=== PATIENT | female | born 1995 | race Caucasian/White ===

== ENCOUNTER 2016-10-08 19:52 | Inpatient (IN) | payer OTHER ==
[2016-10-08 21:11] LABS: APPEARANCE,URINE SLIGHTLY-CLOUDY; BILIRUBIN,URINE NEGATIVE (NEGATIVE); GLUCOSE, URINE NEGATIVE (NEGATIVE); KETONES,URINE NEGATIVE (NEGATIVE); LEUKOCYTE ESTERASE,URINE LARGE (NEGATIVE); NITRITE,URINE NEGATIVE (NEGATIVE); PROTEIN,URINE NEGATIVE (NEGATIVE)
[2016-10-08 21:41] LABS: URINE BARBITURATES SCREEN NEGATIVE; URINE METHADONE SCREEN NEGATIVE; URINE OPIATES LOW NEGATIVE; URINE PHENCYCLIDINE SCREEN NEGATIVE
--- NOTE | 2016-10-08 22:00 | L&D Flow Sheet ---
LD Flowsheet Datetime Report Generated by CPN: 10/08/2016 22:00 Datetime: 10/08/2016 20:49 I/O Interventions: Up to BR (June Flynn, RN) Datetime: 10/08/2016 20:10 Frequency (min): per patient every 4-5 minutes (June Flynn, RN) Pain Scale: 4 (June Flynn, RN) Pain Presence: Intermittent (June Flynn, RN) Pain Type: Contraction (June Flynn, RN) Pain Location: Abdomen; Back (June Flynn, RN) Pain Goal: 1 (June Flynn, RN) Pain Relief Measures: Comfort Measures (June Flynn, RN) Pain Coping: Breathing Through Contractions (June Flynn, RN) Vaginal Bleeding: None (June Flynn, RN) Level of Consciousness: Fully Conscious (June Flynn, RN) DTR's/Clonus: DTRs 2+; No Clonus (June Flynn, RN) Headache: Generalized (June Flynn, RN) Breath Sounds, Left: Clear and Equal (June Flynn, RN) Breath Sounds, Right: Clear and Equal (June Flynn, RN) Nausea/Vomiting: Present (Annotations: nausea) (June Flynn, RN) RUQ Epigastric Pain: Denies (June Flynn, RN) Datetime: 10/08/2016 20:03 NBP Sys/Rossi/Mean (mmHg): 121 (QS system process) : 66 (QS system process) : 87 (QS system process) Pulse: 88 (QS system process) Datetime: 10/08/2016 20:00 Dilatation (cm): 3.5 (June Flynn RN) Effacement (%): 90 (June Flynn RN) Station: 1 (June Flynn RN) Exam by: Fernanda Flynn RN (June Flynn RN) Vaginal Bleeding: None (June Flynn RN) Cervix, Consistency: Soft (June Flynn RN) Cervix, Position: Posterior (June Flynn RN)
[2016-10-08] MEDS ORDERED: BUPIVACAINE HCL 0.25 % INJ/PF (2.5 MG/1 ML) 30 ML VIAL INFIL ONE (23:57)
[2016-10-08] MEDS ORDERED: EPHEDRINE SULFATE INJ 50 MG/1 ML AMPULE IV PRN (23:57)
[2016-10-08] MEDS ORDERED: BENZOIN/ALOE VERA/STORAX/TOLU TINCTURE 60 ML TP PRN (23:57)
[2016-10-08] MEDS ORDERED: FENTANYL/BUPIVACAINE/NS/PF 100 ML EPI PRN (23:57)
[2016-10-09] MEDS: RINGERS SOLUTION,LACTATED 1,000 ML IV PRN ×2 (00:30→00:41)
[2016-10-09 00:40] LABS: ABSOLUTE LYMPHOCYTES (AUTO) 1.5 10^3/uL (0.5-4.7); ABSOLUTE MONOCYTES (AUTO) 0.4 10^3/uL (0.1-1.4); ABSOLUTE NEUT (AUTO) 8.6 10^3/uL (1.7-8.2); BASOPHILS % (AUTO) 0.3 % (0-2); EOSINOPHILS % (AUTO) 0.3 % (0-6); HEMATOCRIT 24.2 % (36.0-47.0); HGB HCT DIFFERENCE -0.8; LYMPHOCYTES % (AUTO) 13.9 % (13-45); MEAN CORPUSCULAR HEMOGLOBIN 23.5 pg (27.0-33.4); MEAN CORPUSCULAR HGB CONC 32.2 g/dL (32.0-36.0); MEAN CORPUSCULAR VOLUME 73 fl (80-97); MONOCYTES % (AUTO) 3.6 % (3-13); RED BLOOD COUNT 3.31 10^6/uL (3.72-5.28); RED CELL DISTRIBUTION WIDTH 15.5 % (11.5-14.0); SEGMENTED NEUTROPHILS % (AUTO) 81.9 % (42-78); WHITE BLOOD COUNT 10.5 10^3/uL (4.0-10.5)
[2016-10-09 00:53] LABS: HEMOGLOBIN 7.8 g/dL (12.0-15.5)
[2016-10-09] MEDS ORDERED: LIDOCAINE 1% INJ-PF (10 MG/ML) 30 ML SDV ONE (01:06)
[2016-10-09] MEDS ORDERED: MISOPROSTOL 0.2 MG TABLET ONE ×2 (01:06→07:53)
[2016-10-09] MEDS ORDERED: EPHEDRINE SULFATE INJ 50 MG/1 ML AMPULE ONE (01:07)
[2016-10-09] MEDS ORDERED: FENTANYL/BUPIVACAINE/NS/PF 200 MCG/100 ML RTUINJ EPI ONE (01:07)
[2016-10-09] MEDS ORDERED: BUPIVACAINE HCL 0.25 % INJ/PF (2.5 MG/1 ML) 30 ML VIAL ONE (01:07)
[2016-10-09] MEDS ORDERED: OXYTOCIN/NORMAL SALINE 20 UNIT/1,000 ML RTUINJ ONE (01:07)
[2016-10-09] MEDS ORDERED: OXYTOCIN/NORMAL SALINE 1,000 ML IV PRN ×2 (03:47→06:33)
[2016-10-09] MEDS ORDERED: ACETAMINOPHEN WITH CODEINE #3 TABLET PO PRN ×2 (06:33)
[2016-10-09] MEDS ORDERED: PROMETHAZINE HCL INJ 25 MG/1 ML VIAL IV PRN (06:33)
[2016-10-09] MEDS ORDERED: NA PHOS,M-B/NA PHOS,DI-BA (ADULT) 133 ML ENEMA PR PRN (06:33)
[2016-10-09] MEDS ORDERED: BENZOCAINE/MENTHOL AEROSOL SPRAY 56 ML TOP PRN (06:33)
[2016-10-09] MEDS ORDERED: DIBUCAINE 1% OINTMENT 28 GM TP PRN (06:33)
[2016-10-09] MEDS ORDERED: DIPHENHYDRAMINE HCL 25 MG CAPSULE PO PRN (06:33)
[2016-10-09] MEDS ORDERED: MAGNESIUM HYDROXIDE SUSP 30 ML UDCUP PO PRN (06:33)
[2016-10-09] MEDS ORDERED: ZOLPIDEM TARTRATE 5 MG TABLET PO PRN (06:33)
[2016-10-09] MEDS ORDERED: PSEUDOEPHEDRINE HCL 30 MG TABLET PO PRN (06:33)
[2016-10-09] MEDS ORDERED: GLYCERIN/WITCH HAZEL LEAF 1 EACH MED..PAD TP PRN (06:33)
[2016-10-09] MEDS ORDERED: DIPH/PERTUSS(ACELL)/TETANUS VAC/PF 0.5 ML SYR (>=10YO) IM PRN (06:33)
[2016-10-09] MEDS ORDERED: PROMETHAZINE HCL 25 MG SUPP.RECT PR PRN (06:33)
[2016-10-09] MEDS ORDERED: MEASLES,MUMPS&RUBELLA VACC/PF 0.5 ML VIAL SUBCUT PRN (06:33)
[2016-10-09] MEDS ORDERED: PROMETHAZINE HCL 25 MG TABLET PO PRN (06:33)
[2016-10-09] MEDS ORDERED: ACETAMINOPHEN 650 MG SUPP.RECT PR PRN (06:33)
--- NOTE | 2016-10-09 08:01 | L&D Flow Sheet ---
LD Flowsheet Datetime Report Generated by CPN: 10/09/2016 08:00 Datetime: 10/09/2016 07:32 Stage of : Recovery (Alina Cartagena RN) Respirations: 16 (Alina Cartagena RN) Temperature (F): 97.9 (Alina Cartagena RN) Temperature (C): 36.6 (QS system process) Temperature Route: Oral (Alina Cartagena RN) Pain Scale: 0 (Alina Cartagena RN) Pain Presence: None/Denies (Alina Cartagena RN) Pain Type: N/A (Alina Cartagena RN) Datetime: 10/09/2016 07:30 NBP Sys/Rossi/Mean (mmHg): 118 (QS system process) : 66 (QS system process) : 87 (QS system process) Pulse: 68 (QS system process) Datetime: 10/09/2016 07:01 NBP Sys/Rossi/Mean (mmHg): 152 (QS system process) : 65 (QS system process) : 94 (QS system process) Pulse: 93 (QS system process) Datetime: 10/09/2016 07:00 Stage of : Recovery (Rosalinda Field, RN) Datetime: 10/09/2016 06:45 Stage of : Recovery (Rosalinda Field, RN) Datetime: 10/09/2016 06:30 Stage of : Recovery (Rosalinda Field, RN) Datetime: 10/09/2016 06:18 Stage 2 Comments: Dr. Hand at bedside for deliver (Rosalinda Field, RN) Datetime: 10/09/2016 06:15 Monitor Mode: External; Palpation (Rosalinda Field, RN) Frequency (min): 2-3 (Rosalinda Field, RN) Quality: Moderate to Strong (Rosalinda Field, RN) Duration (sec): 70-80 (Rosalinda Field, RN) Resting Tone (Palpate): Relaxed (Rosalinda Field, RN) Monitor Mode: External US (Rosalinda Field, RN) FHR Baseline Rate : 115 (Rosalinda Field, RN) Variability: Moderate 6-25 bpm (Rosalinda Field, RN) Accelerations: 10X10 (Rosalinda Field, RN) Decelerations: Early; Variable (Rosalinda Field, RN) Pitocin (milliunit): Pitocin Remains (milliunits) @ 8 (Rosalinda Field, RN) Datetime: 10/09/2016 06:13 Pushing: Coached on Pushing; Urge to Push (Rosalinda Field, RN) Pushing Position: Pushing with Contractions (Rosalinda Field, RN) Pushing Progress: Descent with Pushing (Rosalinda Field, RN) Datetime: 10/09/2016 06:09 Pushing: Coached on Pushing; Urge to Push (Rosalinda Field, RN) Pushing Position: Pushing with Contractions (Rosalinda Field, RN) Datetime: 10/09/2016 06:05 Dilatation (cm): 9.5 (Rosalinda Field, RN) Effacement (%): 100 (Rosalinda Field, RN) Station: 2 (Rosalinda Dixon, RN) Exam by: Dale RN (Rosalinda Field, RN) Datetime: 10/09/2016 06:02 NBP Sys/Rossi/Mean (mmHg): 118 (QS system process) : 60 (QS system process) : 86 (QS system process) Pulse: 86 (QS system process) LaborFlag: Antepartum (QS system process) Datetime: 10/09/2016 06:00 Monitor Mode: External; Palpation (Rosalinda Field, RN) Frequency (min): 1.5-5 (Rosalinda Field, RN) Quality: Moderate to Strong (Rosalinda Field, RN) Duration (sec): 60-80 (Rosalinda Field, RN) Resting Tone (Palpate): Relaxed (Rosalinda Field, RN) Monitor Mode: External US (Roslainda Field, RN) FHR Baseline Rate : 115 (Rosalinda Field, RN) Variability: Moderate 6-25 bpm (Rosalinda Field, RN) Accelerations: 10X10 (Rosalinda Field, RN) Decelerations: Variable (Rosalinda Field, RN) Pitocin (milliunit): Pitocin Increased to (milliunits) @ 8 (Rosalinda Field, RN) Datetime: 10/09/2016 05:45 Monitor Mode: External; Palpation (Rosalinda Field, RN) Frequency (min): 1.5-4 (Rosalinda Field, RN) Quality: Moderate (Rosalinda Field, RN) Duration (sec): 80-90 (Rosalinda Field, RN) Resting Tone (Palpate): Relaxed (Rosalinda Field, RN) Monitor Mode: External US (Rosalinda Field, RN) FHR Baseline Rate : 115 (Rosalinda Field, RN) Variability: Moderate 6-25 bpm (Rosalinda Dixon, RN) Accelerations: 10X10 (Rosalinda Dixon, RN) Decelerations: None (Rosalinda Dixon, RN) Pitocin (milliunit): Pitocin Remains (milliunits) @ 6 (Rosalinda Dixon, RN) Datetime: 10/09/2016 05:30 NBP Sys/Rossi/Mean (mmHg): 119 (QS system process) : 62 (QS system process) : 81 (QS system process) Pulse: 102 (QS system process) Monitor Mode: External; Palpation (Rosalinda Dixon RN) Frequency (min): 1.5-3.5 (Rosalinda Dixon RN) Quality: Moderate (Rosalinda Dixon RN) Duration (sec): 60-100 (Rosalinda Dixon RN) Resting Tone (Palpate): Relaxed (Rosalinda Dixon, RN) Monitor Mode: External US (Rosalinda Dixon RN) FHR Baseline Rate : 115 (Rosalinda Dixon, RN) Variability: Moderate 6-25 bpm (Rosalinda Dixon, RN) Accelerations: 10X10 (Rosalinda Dixon, RN) Decelerations: Early (Rosalinda Dixon, RN) Pitocin (milliunit): Pitocin Remains (milliunits) @ 6 (Rosalinda Dixon, NANDA) LaborFlag: Antepartum (QS system process) Datetime: 10/09/2016 05:15 Monitor Mode: External; Palpation (Rosalinda Dixon RN) Frequency (min): 1.5-4.5 (Rosalinda Dixon RN) Quality: Moderate (Rosalinda Dixon RN) Duration (sec): 60-110 (Rosalinda Dixon RN) Resting Tone (Palpate): Relaxed (Rosalinda Dixon, NANDA) Monitor Mode: External US (Rosalinda Dixon RN) FHR Baseline Rate : 115 (Rosalinda Dixon RN) Variability: Moderate 6-25 bpm (Rosalinda Dixon, RN) Accelerations: 15X15 (Rosalinda Dixon, NANDA) Decelerations: None (Rosalinda Dixon RN) Pitocin (milliunit): Pitocin Increased to (milliunits) @ 6 (Rosalinda Dixon, NANDA) Datetime: 10/09/2016 05:12 Dilatation (cm): 7.5 (Rosalinda Dixon RN) Effacement (%): 90 (Rosalinda Dixon RN) Station: 1 (Rosalinda Dixon RN) Exam by: Dr. Hand (Rosalinda Dixon RN) Membrane Status: Ruptured (Rosalinda Dixon RN) Membranes Rupture Method: Artificial (Rosalinda Dixon RN) Amniotic Fluid Color: Clear (Rosalinda Dixon RN) Amniotic Fluid Amount: Small (Rosalinda Dixon RN) Amniotic Fluid Odor: Normal (Rosalinda Dixon, RN) Datetime: 10/09/2016 05:11 Communication Comments: Dr. Hand at bedside (Rosalinda Dixon, NANDA) Datetime: 10/09/2016 05:00 NBP Sys/Rossi/Mean (mmHg): 110 (QS system process) : 60 (QS system process) : 79 (QS system process) Pulse: 70 (QS system process) Monitor Mode: External; Palpation (Rosalinda Dixon RN) Frequency (min): 1.5-4.5 (Rosalinda Dixon RN) Quality: Moderate (Rosalinda Dixon RN) Duration (sec): 60-100 (Rosalinda Dixon RN) Resting Tone (Palpate): Relaxed (Rosalinda Dixon RN) Monitor Mode: External US (Rosalinda Dixon RN) FHR Baseline Rate : 120 (Rosalinda Dixon RN) Variability: Moderate 6-25 bpm (Rosalinda Dixon RN) Accelerations: 10X10 (Rosalinda Dixon RN) Decelerations: Early; Variable (Rosalinda Field, RN) Pitocin (milliunit): Pitocin Remains (milliunits) @ 4 (Rosalinda Field, RN) LaborFlag: Antepartum (QS system process) Datetime: 10/09/2016 04:45 Monitor Mode: External; Palpation (Rosalinda Field, RN) Frequency (min): 2-7 (Rosalinda Dixon, RN) Quality: Moderate (Rosalinda Field, RN) Duration (sec): 90-120 (Rosalinda Field, RN) Resting Tone (Palpate): Relaxed (Rosalinda Field, RN) Monitor Mode: External US (Rosalinda Field, RN) FHR Baseline Rate : 115 (Rosalinda Field, RN) Variability: Moderate 6-25 bpm (Rosalinda Field, RN) Accelerations: 15X15 (Rosalinda Field, RN) Pitocin (milliunit): Pitocin Remains (milliunits) @ 4 (Rosalinda Field, RN) Datetime: 10/09/2016 04:34 Patient Position/Activity: Peanut Ball; Right Tilt (Rosalinda Field, RN) Datetime: 10/09/2016 04:32 NBP Sys/Rossi/Mean (mmHg): 103 (QS system process) : 53 (QS system process) : 74 (QS system process) Pulse: 71 (QS system process) LaborFlag: Antepartum (QS system process) Datetime: 10/09/2016 04:30 Monitor Mode: External; Palpation (Rosalinda Dixon RN) Frequency (min): 2-5 (Rosalinda Dixon RN) Quality: Moderate (Rosalinda Dixon RN) Duration (sec): 60-100 (Rosalinda Dixon, RN) Resting Tone (Palpate): Relaxed (Rosalinda Dixon, RN) Monitor Mode: External US (Rosalinda Dixon, RN) FHR Baseline Rate : 120 (Rosalinda Dixon RN) Variability: Moderate 6-25 bpm (Rosalinda Dixon, RN) Accelerations: 15X15 (Rosalinda Dixon, RN) Decelerations: Early (Rosalinda Dixon, RN) Pitocin (milliunit): Pitocin Increased to (milliunits) @ 4 (Rosalinda Field, RN) Datetime: 10/09/2016 04:15 Monitor Mode: External; Palpation (Rosalinda Field, RN) Frequency (min): 2-8 (Rosalinda Field, RN) Quality: Moderate (Rosalinda Field, RN) Duration (sec): 50-100 (Rosalinda Field, RN) Resting Tone (Palpate): Relaxed (Rosalinda Field, RN) Monitor Mode: External US (Rosalinda Field, RN) FHR Baseline Rate : 120 (Rosalinda Field, RN) Variability: Moderate 6-25 bpm (Rosalinda Field, RN) Accelerations: 15X15 (Rosalinda Field, RN) Decelerations: None (Rosalinda Field, RN) Pitocin (milliunit): Pitocin Remains (milliunits) @ 2 (Rosalinda Field, RN) Datetime: 10/09/2016 04:01 NBP Sys/Rossi/Mean (mmHg): 103 (QS system process) : 55 (QS system process) : 76 (QS system process) Pulse: 72 (QS system process) LaborFlag: Antepartum (QS system process) Datetime: 10/09/2016 04:00 Monitor Mode: External; Palpation (Rosalinda Field, RN) Frequency (min): 9 (Rosalinda Field, RN) Quality: Moderate (Rosalinda Field, RN) Duration (sec): 60-70 (Rosalinda Field, RN) Resting Tone (Palpate): Relaxed (Rosalinda Field, RN) Monitor Mode: External US (Rosalinda Field, RN) FHR Baseline Rate : 115 (Rosalinda Field, RN) Variability: Moderate 6-25 bpm (Rosalinda Field, RN) Accelerations: 15X15 (Rosalinda Field, RN) Decelerations: None (Rosalinda Field, RN) Pitocin (milliunit): Pitocin Remains (milliunits) @ 2 (Rosalinda Field, RN) Datetime: 10/09/2016 03:57 Pitocin (milliunit): Pitocin Started (milliunits) @ 2; Pitocin 20 Units in 1000ml NS (Rosalinda Field, RN) Datetime: 10/09/2016 03:33 Patient Position/Activity: Left Extreme; Peanut Ball (Rosalinda Dixon RN) Datetime: 10/09/2016 03:31 NBP Sys/Rossi/Mean (mmHg): 121 (QS system process) : 64 (QS system process) : 84 (QS system process) Pulse: 78 (QS system process) Dilatation (cm): 6.5 (Rosalinda Dixon RN) Effacement (%): 90 (Rosalinda Dixon RN) Station: 1 (Rosalinda Dixon RN) Exam by: NANDA Sheth (Rosalinda Dixon RN) LaborFlag: Antepartum (QS system process) Datetime: 10/09/2016 03:30 Monitor Mode: External; Palpation (Rosalinda Field, RN) Frequency (min): 5.5-11 (Rosalinda Field, RN) Quality: Moderate (Rosalinda Field, RN) Duration (sec): 80-130 (Rosalinda Field, RN) Resting Tone (Palpate): Relaxed (Rosalinda Field, RN) Monitor Mode: External US (Rosalinda Field, RN) FHR Baseline Rate : 115 (Rosalinda Field, RN) Variability: Moderate 6-25 bpm (Rosalinda Field, RN) Accelerations: 15X15 (Rosalinda Field, RN) Decelerations: None (Rosalinda Field, RN) Datetime: 10/09/2016 03:00 NBP Sys/Rossi/Mean (mmHg): 106 (QS system process) : 54 (QS system process) : 74 (QS system process) Pulse: 75 (QS system process) Monitor Mode: External; Palpation (Rosalinda Field, RN) Frequency (min): 2-6.5 (Rosalinda Field, RN) Quality: Moderate (Rosalinda Field, RN) Duration (sec): 50-110 (Rosalinda Field, RN) Resting Tone (Palpate): Relaxed (Rosalinda Field, RN) Monitor Mode: External US (Rosalinda Field, RN) FHR Baseline Rate : 125 (Rosalinda Field, RN) Variability: Moderate 6-25 bpm (Rosalinda Field, RN) Accelerations: 15X15 (Rosalinda Field, RN) Decelerations: Variable (Rosalinda Field, RN) LaborFlag: Antepartum (QS system process) Datetime: 10/09/2016 02:30 NBP Sys/Rossi/Mean (mmHg): 109 (QS system process) : 58 (QS system process) : 77 (QS system process) Pulse: 93 (QS system process) Monitor Mode: External; Palpation (Rosalinda Dixon, RN) Frequency (min): 1.5-7.5 (Rosalinda Dixon, RN) Quality: Moderate (Rosalinda Dixon, RN) Duration (sec): 50-70 (Rosalinda Dixon, RN) Resting Tone (Palpate): Relaxed (Rosalinda Dixon, RN) Monitor Mode: External US (Rosalinda Dixon, RN) FHR Baseline Rate : 125 (Rosalinda , RN) Variability: Moderate 6-25 bpm (Rosalinda Field, RN) Accelerations: 15X15 (Rosalinda Field, RN) Decelerations: Early (Rosalinda , RN) LaborFlag: Antepartum (QS system process) Datetime: 10/09/2016 02:23 NBP Sys/Rossi/Mean (mmHg): 114 (QS system process) : 59 (QS system process) : 75 (QS system process) Pulse: 100 (QS system process) LaborFlag: Antepartum (QS system process) Datetime: 10/09/2016 02:17 NBP Sys/Rossi/Mean (mmHg): 106 (QS system process) : 58 (QS system process) : 76 (QS system process) Pulse: 85 (QS system process) LaborFlag: Antepartum (QS system process) Datetime: 10/09/2016 02:12 NBP Sys/Rossi/Mean (mmHg): 108 (QS system process) : 59 (QS system process) : 79 (QS system process) Pulse: 93 (QS system process) LaborFlag: Antepartum (QS system process) Datetime: 10/09/2016 02:07 NBP Sys/Rossi/Mean (mmHg): 108 (QS system process) : 55 (QS system process) : 76 (QS system process) Pulse: 85 (QS system process) LaborFlag: Antepartum (QS system process) Datetime: 10/09/2016 02:02 NBP Sys/Rossi/Mean (mmHg): 109 (QS system process) : 57 (QS system process) : 79 (QS system process) Pulse: 77 (QS system process) LaborFlag: Antepartum (QS system process) Datetime: 10/09/2016 02:01 NBP Sys/Rossi/Mean (mmHg): 109 (QS system process) : 59 (QS system process) : 81 (QS system process) Pulse: 88 (QS system process) LaborFlag: Antepartum (QS system process) Datetime: 10/09/2016 02:00 NBP Sys/Rossi/Mean (mmHg): 110 (QS system process) : 57 (QS system process) : 80 (QS system process) Pulse: 82 (QS system process) Monitor Mode: External; Palpation (Rosalinda Dixon, RN) Frequency (min): 1-4 (Rosalinda Dixon, RN) Quality: Moderate (Rosalinda , RN) Duration (sec): 50-100 (Rosalinda , RN) Resting Tone (Palpate): Relaxed (Rosalinda Field, RN) Monitor Mode: External US (Rosalinda Field, RN) FHR Baseline Rate : 120 (Rosalinda Field, RN) Variability: Moderate 6-25 bpm (Rosalinda Field, RN) Accelerations: 15X15 (Rosalinda Field, RN) Decelerations: Variable (Rosalinda Field, RN) LaborFlag: Antepartum (QS system process) Datetime: 10/09/2016 01:59 NBP Sys/Rossi/Mean (mmHg): 109 (QS system process) : 57 (QS system process) : 77 (QS system process) Pulse: 86 (QS system process) LaborFlag: Antepartum (QS system process) Datetime: 10/09/2016 01:58 NBP Sys/Rossi/Mean (mmHg): 111 (QS system process) : 58 (QS system process) : 79 (QS system process) Pulse: 83 (QS system process) LaborFlag: Antepartum (QS system process) Datetime: 10/09/2016 01:57 NBP Sys/Rossi/Mean (mmHg): 104 (QS system process) : 57 (QS system process) : 73 (QS system process) Pulse: 90 (QS system process) LaborFlag: Antepartum (QS system process) Datetime: 10/09/2016 01:56 NBP Sys/Rossi/Mean (mmHg): 99 (QS system process) : 58 (QS system process) : 75 (QS system process) Pulse: 82 (QS system process) LaborFlag: Antepartum (QS system process) Datetime: 10/09/2016 01:55 Medication Comments: Ephedrine 5 mg IV (Rosalinda Field, RN) Datetime: 10/09/2016 01:53 NBP Sys/Rossi/Mean (mmHg): 98 (QS system process) : 52 (QS system process) : 71 (QS system process) Pulse: 93 (QS system process) LaborFlag: Antepartum (QS system process) Datetime: 10/09/2016 01:49 NBP Sys/Rossi/Mean (mmHg): 104 (QS system process) : 52 (QS system process) : 75 (QS system process) Pulse: 77 (QS system process) LaborFlag: Antepartum (QS system process) Datetime: 10/09/2016 01:42 NBP Sys/Rossi/Mean (mmHg): 122 (QS system process) : 58 (QS system process) : 79 (QS system process) Pulse: 93 (QS system process) Dilatation (cm): 6.0 (Rosalinda Dixon RN) Effacement (%): 90 (Rosalinda Dixon RN) Station: 1 (Rosalinda Dixon RN) Exam by: NANDA Sheth (Rosalinda Dixon RN) LaborFlag: Antepartum (QS system process) Datetime: 10/09/2016 01:41 NBP Sys/Rossi/Mean (mmHg): 116 (QS system process) : 58 (QS system process) : 80 (QS system process) Pulse: 88 (QS system process) LaborFlag: Antepartum (QS system process) Datetime: 10/09/2016 01:40 NBP Sys/Rossi/Mean (mmHg): 113 (QS system process) : 56 (QS system process) : 78 (QS system process) Pulse: 108 (QS system process) LaborFlag: Antepartum (QS system process) Datetime: 10/09/2016 01:39 NBP Sys/Rossi/Mean (mmHg): 119 (QS system process) : 61 (QS system process) : 83 (QS system process) Pulse: 88 (QS system process) LaborFlag: Antepartum (QS system process) Datetime: 10/09/2016 01:38 NBP Sys/Rossi/Mean (mmHg): 123 (QS system process) : 63 (QS system process) : 87 (QS system process) Pulse: 96 (QS system process) Anesthesia Level Check: T11 (Rosalinda Dixon, RN) LaborFlag: Antepartum (QS system process) Datetime: 10/09/2016 01:37 NBP Sys/Rossi/Mean (mmHg): 123 (QS system process) : 58 (QS system process) : 84 (QS system process) Pulse: 95 (QS system process) LaborFlag: Antepartum (QS system process) Datetime: 10/09/2016 01:36 NBP Sys/Rossi/Mean (mmHg): 119 (QS system process) : 57 (QS system process) : 82 (QS system process) Pulse: 115 (QS system process) LaborFlag: Antepartum (QS system process) Datetime: 10/09/2016 01:35 NBP Sys/Rossi/Mean (mmHg): 122 (QS system process) : 57 (QS system process) : 80 (QS system process) Pulse: 98 (QS system process) LaborFlag: Antepartum (QS system process) Datetime: 10/09/2016 01:34 NBP Sys/Rossi/Mean (mmHg): 109 (QS system process) : 56 (QS system process) : 77 (QS system process) Pulse: 91 (QS system process) Pulse: 88 (QS system process) SpO2 (%): 99 (QS system process) LaborFlag: Antepartum (QS system process) Datetime: 10/09/2016 01:33 NBP Sys/Rossi/Mean (mmHg): 116 (QS system process) : 60 (QS system process) : 82 (QS system process) Pulse: 84 (QS system process) LaborFlag: Antepartum (QS system process) Datetime: 10/09/2016 01:32 NBP Sys/Rossi/Mean (mmHg): 117 (QS system process) : 67 (QS system process) : 85 (QS system process) Pulse: 90 (QS system process) Epidural Procedure: Loading Dose (Rosalinda Dixon RN) LaborFlag: Antepartum (QS system process) Datetime: 10/09/2016 01:31 Epidural Procedure: Cath Placed (Rosalinda Dixon RN) Epidural Procedure: Test Dose (Rosalinda Field, RN) Datetime: 10/09/2016 01:30 Monitor Mode: External; Palpation (Rosalinda Field, RN) Frequency (min): 2.5-8.5 (Rosalinda Field, RN) Quality: Moderate (Rosalinda Field, RN) Duration (sec): 60-110 (Rosalinda Field, RN) Resting Tone (Palpate): Relaxed (Rosalinda Field, RN) Monitor Mode: External US (Rosalinda Field, RN) FHR Baseline Rate : 115 (Rosalinda Field, RN) Variability: Moderate 6-25 bpm (Rosalinda Field, RN) Accelerations: None (Rosalinda Field, RN) Decelerations: None (Rosalinda Field, RN) Datetime: 10/09/2016 01:29 Pulse: 89 (QS system process) SpO2 (%): 99 (QS system process) LaborFlag: Antepartum (QS system process) Datetime: 10/09/2016 01:25 NBP Sys/Rossi/Mean (mmHg): 126 (QS system process) : 75 (QS system process) : 94 (QS system process) Pulse: 86 (QS system process) LaborFlag: Antepartum (QS system process) Datetime: 10/09/2016 01:24 Pulse: 87 (QS system process) SpO2 (%): 98 (QS system process) LaborFlag: Antepartum (QS system process) Datetime: 10/09/2016 01:20 Anesthesia Comments: Dr. Cobb at bedside for epidural (Rosalinda Field, RN) Datetime: 10/09/2016 01:19 Pulse: 85 (QS system process) SpO2 (%): 98 (QS system process) LaborFlag: Antepartum (QS system process) Datetime: 10/09/2016 01:17 Procedure Verify: Correct Patient Identity; Correct Side and Site are Marked; Accurate Procedure Consent Form; Agreement on Procedure to be Done; Correct Patient Position; Relevant Images and Results are Properly Labeled and Displayed; Addressed Need to Administer Antibiotics or Fluids for Irrigation; Safety Precautions Based on Patient History or Medication Use (Rosalinda Dixon RN) Anesthesia Plans: Epidural (Rosalinda Dixon RN) Epidural Positioning: Sitting (Rosalinda Dixon RN) Datetime: 10/09/2016 01:14 Pulse: 104 (QS system process) SpO2 (%): 98 (QS system process) LaborFlag: Antepartum (QS system process) Datetime: 10/09/2016 01:12 Procedure Verify: Correct Patient Identity; Correct Side and Site are Marked; Accurate Procedure Consent Form; Agreement on Procedure to be Done (Rosalinda Dixon RN) Anesthesia Plans: Epidural (Rosalinda Dixon RN) Epidural Positioning: Sitting (Rosalinda Dixon RN) Datetime: 10/09/2016 01:09 Procedure Verify: Correct Patient Identity; Correct Side and Site are Marked; Accurate Procedure Consent Form; Agreement on Procedure to be Done; Correct Patient Position; Addressed Need to Administer Antibiotics or Fluids for Irrigation; Safety Precautions Based on Patient History or Medication Use (Sandy Solitario RN) Anesthesia Comments: Dr. Cobb notified of pt desiring epidural. (Sandy Solitario RN) Datetime: 10/09/2016 01:08 I/O Interventions: Up to BR (Rosalinda Field, RN) Datetime: 10/09/2016 01:00 Monitor Mode: External; Palpation (Rosalinda Field, RN) Frequency (min): 2-7.5 (Rosalinda Field, RN) Quality: Moderate (Rosalinda Field, RN) Duration (sec): 60-100 (Rosalinda Field, RN) Resting Tone (Palpate): Relaxed (Rosalinda Field, RN) Monitor Mode: External US (Rosalinda Field, RN) FHR Baseline Rate : 115 (Rosalinda Field, RN) Variability: Moderate 6-25 bpm (Rosalinda Field, RN) Accelerations: 15X15 (Rosalinda Field, RN) Decelerations: None (Rosalinda Field, RN) Datetime: 10/09/2016 00:55 NBP Sys/Rossi/Mean (mmHg): 121 (QS system process) : 77 (QS system process) : 94 (QS system process) Pulse: 90 (QS system process) LaborFlag: Antepartum (QS system process) Datetime: 10/09/2016 00:41 IV/Blood Work: New IV Bag Hung; IV Bag Number @ 2 (Rosalinda Dixon RN) Datetime: 10/09/2016 00:30 Monitor Mode: External; Palpation (Rosalinda Dixon RN) Frequency (min): 1-5.5 (Rosalinda Dixon RN) Quality: Moderate (Rosalinda Dixon RN) Duration (sec): 60-110 (Rosalinda Dixon RN) Resting Tone (Palpate): Relaxed (Rosalinda Dixon RN) Monitor Mode: External US (Rosalinda Field, RN) FHR Baseline Rate : 115 (Rosalinda Field, RN) Variability: Moderate 6-25 bpm (Rosalinda Field, RN) Accelerations: 15X15 (Rosalinda Field, RN) Decelerations: None (Rosalinda Field, RN) Datetime: 10/09/2016 00:27 NBP Sys/Rossi/Mean (mmHg): 119 (QS system process) : 64 (QS system process) : 86 (QS system process) Pulse: 77 (QS system process) LaborFlag: Antepartum (QS system process) Datetime: 10/09/2016 00:21 Procedures: Labs Drawn (Rosalinda Field, RN) Datetime: 10/09/2016 00:00 Monitor Mode: External; Palpation (Rosalinda Field, RN) Frequency (min): 2-4.5 (Rosalinda Field, RN) Quality: Moderate (Rosalinda Field, RN) Duration (sec): 60-100 (Rosalinda Field, RN) Resting Tone (Palpate): Relaxed (Rosalinda Field, RN) Monitor Mode: External US (Rosalinda Field, RN) FHR Baseline Rate : 115 (Rosalinda Field, RN) Variability: Moderate 6-25 bpm (Rosalinda Field, RN) Accelerations: 15X15 (Rosalinda Field, RN) Decelerations: None (Rosalinda Field, RN) Datetime: 10/08/2016 23:55 NBP Sys/Rossi/Mean (mmHg): 134 (QS system process) : 60 (QS system process) : 87 (QS system process) Pulse: 90 (QS system process) LaborFlag: Antepartum (QS system process) Datetime: 10/08/2016 23:45 Frequency (min): q1-5 minutes (Rosalinda Dixon RN) Pain Scale: 4 (Rosalinda Dixon RN) Pain Presence: Intermittent (Rosalinda Dixon RN) Pain Type: Cramping; Contraction (Rosalinda Dixon RN) Pain Location: Back (Rosalinda Dixon RN) Pain Goal: 0 (Rosalinda Dixon RN) Pain Relief Measures: Comfort Measures (Rosalinda Dixon RN) Pain Coping: Talking Through Contractions; Breathing Through Contractions (Rosalinda Dixon RN) Vaginal Bleeding: Normal Show (Rosalinda Dixon RN) Level of Consciousness: Fully Conscious (Rosalinda Dixon RN) DTR's/Clonus: DTRs 2+; No Clonus (Rosalinda Dixon RN) Headache: Denies (Rosalinda Dixon RN) Breath Sounds, Left: Clear and Equal (Rosalinda Dixon RN) Breath Sounds, Right: Clear and Equal (Rosalinda Dixon RN) Nausea/Vomiting: Denies (Rosalinda Dixon RN) RUQ Epigastric Pain: Denies (Rosalinda Dixon RN) Instructional Method: Verbal; Patient Instructed; Family/Support Person Instructed; Verbalized Understanding (Rosalinda Dixon RN) Plan of Care: Plan of Care Discussed; Vaginal Delivery (Rosalinda Dixon RN) Unit Routine: [place] to Room; Call [place]; Bed; Visiting Policy; Waiting Areas; Infant Security; Phone/Cell Phone Use; Photography; Unit Personnel; Consents Signed; Handwashing; Flu/Illness Precautions; Monitoring; IV Pumps; Safety/Fall Risk Prevention; Bathroom Privileges (Rosalinda Dixon RN) LaborFlag: Antepartum (QS system process) Datetime: 10/08/2016 23:42 Procedures: Consents Signed (Rosalinda Field, RN) Datetime: 10/08/2016 23:40 IV/Blood Work: IV Started; IV Bolus Started; IV Infusing per Order (Rosalinda Field, RN) Datetime: 10/08/2016 23:30 Monitor Mode: External; Palpation (Rosalinda Field, RN) Frequency (min): 1-6 (Rosalinda Field, RN) Quality: Moderate (Rosalinda Field, RN) Duration (sec): 70-120 (Rosalinda Field, RN) Resting Tone (Palpate): Relaxed (Rosalinda Field, RN) Monitor Mode: External US (Rosalinda Field, RN) FHR Baseline Rate : 115 (Rosalinda Field, RN) Variability: Moderate 6-25 bpm (Rosalinda Field, RN) Accelerations: 15X15 (Rosalinda Field, RN) Decelerations: None (Rosalinda Field, RN) Datetime: 10/08/2016 23:25 [facility]): [facility] (%): 90 [facility] Station: 1 ([facility], RN) Exam by: Dr. Hand ([facility], ) Datetime: 10/08/2016 23:23 Communication Comments: Dr. Hand at bedside ([facility], ) Datetime: 10/08/2016 23:00 Monitor Mode: External; Palpation ([facility], ) Frequency (min): 2-6 (Rosalinda Field, RN) Quality: Mild/Moderate (Rosalinda Field, RN) Duration (sec): 60-90 (Rosalinda Field, RN) Resting Tone (Palpate): Relaxed (Rosalinda Field, RN) Monitor Mode: External US (Rosalinda Dixon, RN) FHR Baseline Rate : 115 (Rosalinda Field, RN) Variability: Moderate 6-25 bpm (Rosalinda Field, RN) Accelerations: 15X15 (Rosalinda Field, RN) Decelerations: None (Rosalinda Field, RN) Datetime: 10/08/2016 22:57 NBP Sys/Rossi/Mean (mmHg): 125 (QS system process) : 72 (QS system process) : 92 (QS system process) Pulse: 83 (QS system process) LaborFlag: Antepartum (QS system process) Datetime: 10/08/2016 22:26 NBP Sys/Rossi/Mean (mmHg): 112 (QS system process) : 55 (QS system process) : 76 (QS system process) Pulse: 76 (QS system process) LaborFlag: Antepartum (QS system process) Datetime: 10/08/2016 22:19 Communication: Provider Orders Received (June Flynn RN) Provider Notified (Name): Dr Hand (June Flynn RN) Communication Comments: Report given to Dr. Hand re: patient pain, EGA, contraction pattern, and FHR status. Orders received to continue to monitor, recheck cervix in approximately 2 hours and call for orders. (June Flynn RN) Datetime: 10/08/2016 22:15 Dilatation (cm): 4.0 (June Flynn RN) Effacement (%): 90 (June Flynn RN) Station: 1 (June Flynn RN) Exam by: Fernanda Flynn RN (June Flynn RN)
[2016-10-09] MEDS ORDERED: RINGERS SOLUTION,LACTATED 500 ML IV ONE (08:33)
[2016-10-09] MEDS ORDERED: RINGERS SOLUTION,LACTATED 1,000 ML IV ONE (08:35)
--- NOTE | 2016-10-09 09:31 | Admission Physical ---
Datetime Report Generated by CPN: 10/09/2016 09:31 CURRENT ADMISSION Chief Complaint: Uterine Contractions Indication for Induction: Not Applicable Admit Plan: Initiate Labor Protocol ALLERGIES Medication Allergies: Yes Medication Allergies: codeine/SV (10/08/2016) Latex: No Latex Allergies Food Allergies: none Environmental Allergies: none OBSTETRICAL HISTORY EDC: 10/25/2016 00:00 : 2 Para: 1 Term: 1 : 0 SAB: 0 IAB: 0 Ectopic: 0 Livin Cesareans: 0 VBACs: 0 Multiple Births: 0 Gestational Diabetes: No Rh Sensitization: No Incompetent Cervix: No LUZ: No Infertility: No ART Treatment: No Uterine Anomaly: No IUGR: No Hx Previous C/S: No Macrosomia: No Hx Loss/Stillborn: No PIH: No Hx : No Placenta Previa/Abruption: No Depression/PP Depression: No PTL/PROM: Yes Post Hemorrhage: No Current Procedures: Ultrasound; NST Obstetrical History Comments: G1: Male 7 pounds 4 [id number] G2: Current SEE RECORDS Alcohol: No Marijuana : No Cocaine: No Other Illicit Drugs: No Cigarettes: Never Smoker. [id number] MEDICAL HISTORY Diabetes: No Blood Transfusion: No Pulmonary Disease (Asthma, TB): No Breast Disease: No Hypertension: No Nutritionist Surgery: No Heart Disease: No Hosp/Surgery: Yes Autoimmune Disorder: No Anesthetic Complications: No Kidney Disease: No Abnormal Pap Smear: No Neuro/Epilepsy: No Psychiatric Disorders: No Other Medical Diseases: No Hepatitis/Liver Disease: No Significant Family History: No Varicosities/Phlebitis: No Trauma/Violence : No Thyroid Dysfunction: No Medical History Comments: knee surgery x 3; childbirth2014 INFECTIOUS HISTORY Gonorrhea: No Genital Herpes: No Chlamydia: No Tuberculosis: No Syphilis: No Hepatitis: No HIV/AIDS Exposure: No Rash or Viral Illness: No HPV: No PHYSICAL EXAM General: Normal HEENT: Normal Neurologic: Normal Thyroid: Normal Heart: Normal Lungs: Normal Breast: Deferred Back: Normal Abdomen: Normal Genitourinary Exam: Normal Extremities: Normal DTRs: Normal Pelvic Type: Adequate Vital Signs: Reviewed VAGINAL EXAM Dilatation: 6 Effacement: 90 Station: 1 MEMBRANES Membranes: Intact FETUS A EGA: 37.5 Monitoring: External US FHR- Baseline: 140 Variability: Moderate 6-25bpm Accelerations: 15X15 Decelerations: None FHR Category: Category I Presentation: Vertex Admit Comment: efw 7-8 lbs PLANS FOR LABOR AND DELIVERY Labor and Delivery: None Pain Management: Epidural Feeding Preference: Breast Benefit of Breast Feed Discussed: Yes Circumcision: N/A INFORMED CONSENT Signature: with User ID: [email or web address]
--- NOTE | 2016-10-09 09:32 | Delivery Summary ---
Del Sum A-C Datetime Report Generated by CPN: 10/09/2016 09:32 ADMISSION DATA Chief Complaint: Uterine Contractions Indication for Induction: Not Applicable Admission Impression: Term, Intrauterine ; Active Labor Admit Provider Comments: efw 7-8 lbs DELIVERY PERSONNEL Delivery Doctor:: Ant Hand MD Labor and Delivery Nurse:: Rosalinda Dixon RN Nursery Nurse:: Candi Seymour RN Finance Attorney/OIL REFINERY PROCESS TECHNICIAN: Ela Semar, DRILL SETUP OPERATOR MATERNAL INFORMATION Delivery Anesthesia: Epidural Medications After Delivery: Pitocin Drip 20 Units/1000ml NSS Maternal Complications: None LABOR SUMMARY EDC: 10/25/2016 00:00 No. Babies in Womb: 1 Attempted: No Labor Anesthesia: Epidural LABOR INFORMATION Reason for Induction: Not Applicable Onset of Labor: 10/08/2016 23:25 Complete Dilatation: 10/09/2016 06:09 Group B Beta Strep: negative Steroids Given: None Reason Steroids Not Administered: Not Applicable MEMBRANES Membranes Rupture Method: Artificial Rupture of Membranes: 10/09/2016 05:12 Length of Rupture (hr): 1.15 Amniotic Fluid Color: Clear Amniotic Fluid Amount: Small Amniotic Fluid Odor: Normal STAGES OF LABOR Stage 1 hr: 6 Stage 1 min: 44 Stage 2 hr: 0 Stage 2 min: 12 Stage 3 hr: 0 Stage 3 min: 6 Total Time in Labor hr: 7 Total Time in Labor min: 2 VAGINAL DELIVERY Episiotomy: None Laceration Extension: N/A Laceration Type: None Laceration Repair: Not Applicable Sponge Count Correct: Yes; Vaginal Sweep Performed Sharps Count Correct: N/A CSECTION DELIVERY Primary Indication: N/A Secondary Indication: N/A CSection Incidence: N/A Labor: N/A Elective: N/A CSection Incision: N/A BABY A INFORMATION Delivery Date/Time: 10/09/2016 06:21 Method of Delivery: Vaginal Born in Route : No : N/A Forceps: N/A Vacuum Extraction: N/A Shoulder Dystocia : No PRESENTATION/POSITION BABY A Presentation: Cephalic Cephalic Presentation: Vertex Vertex Position: Right Occipital Anterior Breech Presentation: N/A PLACENTA INFORMATION BABY A Placenta Delivery Time : 10/09/2016 06:27 Placenta Method of Delivery: Spontaneous Placenta Status: Delivered SCORES BABY A Heart Rate 1 min: >100 bpm Resp Effort 1 min: Good Cry Reflex Irritability 1 min: Cough or Sneeze or Pulls Away Muscle Tone 1 min: Active Motion Color 1 min: Body [place], Extremities Blue Resuscitation Effort 1 min: Tactile Stimulation SCORE 1 MIN: 9 Heart Rate 5 min: >100 bpm Resp Effort 5 min: Good Cry Reflex Irritability 5 min: Cough or Sneeze or Pulls Away Muscle Tone 5 min: Active Motion Color 5 min: Body [place], Extremities Blue Resuscitation Effort 5 min: Tactile Stimulation SCORE 5 MIN: 9 INFORMATION BABY A Gestational Age at Delivery: 37.5 Gestational Status: Early Term- 37- 38.6 Weeks Outcome : Liveborn Infant Condition : Stable Infant Sex: Female IDENTIFICATION BABY A Infant Verification Date/Time: 10/09/2016 06:33 ID Band Number: [id number] Mother's Name Verified: Yes Infant RN Verifying : R Altaf, RNC Additional Verifying Personnel: C Isabel, RN WEIGHT/LENGTH BABY A Infant Birthweight (gm): 3130 Weight (lb): 6 Infant Weight (oz): 14 Length (in): 19.75 Infant Length (cm): 50.17 CORD INFORMATION BABY A No. Cord Vessels: 3 Nuchal Cord : N/A Cord Blood Taken: Yes-For Storage (Mom's Blood type +) Suction: Mouth; Nose ASSESSMENT BABY A Complications: None Physical Findings at Delivery: Within Normal Limits Respirations: Appears Normal Skin to Skin: Yes Skin to Skin Time (min): 30 Junior Qa Analyst/ALS Called : No Care By: John Seymour RN Transferred To: Remains with Mother SIGNATURES Signature: with User ID: [email or web address]
[2016-10-09 09:35] LABS: HEMATOCRIT 23.1 % (36.0-47.0); HGB HCT DIFFERENCE -1.2; MEAN CORPUSCULAR HEMOGLOBIN 23.1 pg (27.0-33.4); MEAN CORPUSCULAR HGB CONC 31.7 g/dL (32.0-36.0); MEAN CORPUSCULAR VOLUME 73 fl (80-97); RED BLOOD COUNT 3.17 10^6/uL (3.72-5.28); RED CELL DISTRIBUTION WIDTH 15.4 % (11.5-14.0); WHITE BLOOD COUNT 12.2 10^3/uL (4.0-10.5)
[2016-10-09 09:38] LABS: HEMOGLOBIN 7.3 g/dL (12.0-15.5)
[2016-10-09] MEDS ORDERED: FERROUS SULFATE 325 MG TABLET PO SCH (10:00)
--- NOTE | 2016-10-09 10:00 | L&D Flow Sheet ---
LD Flowsheet Datetime Report Generated by CPN: 10/09/2016 10:00 Datetime: 10/09/2016 09:22 NBP Sys/Rossi/Mean (mmHg): 120 (QS system process) : 76 (QS system process) : 93 (QS system process) Pulse: 90 (QS system process) Datetime: 10/09/2016 09:09 IV/Blood Work: Labs Drawn (Alina Osiel, RN) Datetime: 10/09/2016 09:06 NBP Sys/Rossi/Mean (mmHg): 116 (QS system process) : 58 (QS system process) : 83 (QS system process) Pulse: 77 (QS system process) Datetime: 10/09/2016 08:52 NBP Sys/Rossi/Mean (mmHg): 116 (QS system process) : 57 (QS system process) : 82 (QS system process) Pulse: 72 (QS system process) Datetime: 10/09/2016 08:41 IV/Blood Work: IV Bolus Started (Alina Osiel, RN) Datetime: 10/09/2016 08:40 Communication Comments: patient states she feels much better, no apparent signs of distress, vital signs stable, patient resting in bed, RN at bedside (Alina Cartagena, RN) Datetime: 10/09/2016 08:39 Communication Comments: order received from DrApolinar Jordan for stat CBC and 500 mL LR bolus (Alina Cartagena, RN) Datetime: 10/09/2016 08:37 Communication Comments: DrApolinar Jordan notified of patient feeling lightheaded and syncopal episode in BR, RN at patient's side. (Alina Osiel, RN) Datetime: 10/09/2016 08:36 NBP Sys/Rossi/Mean (mmHg): 130 (QS system process) : 59 (QS system process) : 85 (QS system process) Pulse: 76 (QS system process) Datetime: 10/09/2016 08:34 Pulse: 92 (QS system process) SpO2 (%): 98 (QS system process) Datetime: 10/09/2016 08:00 NBP Sys/Rossi/Mean (mmHg): 122 (QS system process) : 61 (QS system process) : 86 (QS system process) Pulse: 69 (QS system process)
[2016-10-09] MEDS: FAMOTIDINE 20 MG TABLET PO SCH ×2 (12:35→21:07)
[2016-10-09] MEDS: SENNOSIDES/DOCUSATE 8.6-50 MG 1 EACH TABLET PO SCH (12:35)
[2016-10-09] MEDS: PRENATAL VITAMIN W-O CA NO5/FE FUMARATE/FA CAPSULE PO SCH (12:35)
[2016-10-09] MEDS: DOCUSATE SODIUM 100 MG CAPSULE PO SCH ×2 (12:35→17:24)
[2016-10-09] MEDS ORDERED: IBUPROFEN SUSP 100 MG/5 ML ORAL SYRINGE ONE (13:33)
[2016-10-09] MEDS ORDERED: IBUPROFEN 800 MG TABLET PO SCH (14:00)
[2016-10-09] MEDS: FERROUS SULFATE LIQUID 300 MG/5 ML UDC PO SCH (17:23)
--- NOTE | 2016-10-09 19:01 | L&D Flow Sheet ---
LD Flowsheet Datetime Report Generated by CPN: 10/09/2016 19:00 Datetime: 10/09/2016 09:22 NBP Sys/Rossi/Mean (mmHg): 120 (QS system process) : 76 (QS system process) : 93 (QS system process) Pulse: 90 (QS system process) Datetime: 10/09/2016 09:09 IV/Blood Work: Labs Drawn (Alina Osiel, RN) Datetime: 10/09/2016 09:06 NBP Sys/Rossi/Mean (mmHg): 116 (QS system process) : 58 (QS system process) : 83 (QS system process) Pulse: 77 (QS system process) Datetime: 10/09/2016 08:52 NBP Sys/Rossi/Mean (mmHg): 116 (QS system process) : 57 (QS system process) : 82 (QS system process) Pulse: 72 (QS system process) Datetime: 10/09/2016 08:41 IV/Blood Work: IV Bolus Started (Alina Osiel, RN) Datetime: 10/09/2016 08:40 Communication Comments: patient states she feels much better, no apparent signs of distress, vital signs stable, patient resting in bed, RN at bedside (Alina Cartagena, RN) Datetime: 10/09/2016 08:39 Communication Comments: order received from DrApolinar Jordan for stat CBC and 500 mL LR bolus (Alina Cartagena, RN) Datetime: 10/09/2016 08:37 Communication Comments: DrApolinar Jordan notified of patient feeling lightheaded and syncopal episode in BR, RN at patient's side. (Alina Osiel, RN) Datetime: 10/09/2016 08:36 NBP Sys/Rossi/Mean (mmHg): 130 (QS system process) : 59 (QS system process) : 85 (QS system process) Pulse: 76 (QS system process) Datetime: 10/09/2016 08:34 Pulse: 92 (QS system process) SpO2 (%): 98 (QS system process) Datetime: 10/09/2016 08:00 NBP Sys/Rossi/Mean (mmHg): 122 (QS system process) : 61 (QS system process) : 86 (QS system process) Pulse: 69 (QS system process) Datetime: 10/09/2016 07:32 Stage of : Recovery (Alina Cartagena RN) Respirations: 16 (Alina Cartagena RN) Temperature (F): 97.9 (Alina Cartagena RN) Temperature (C): 36.6 (QS system process) Temperature Route: Oral (Alina Cartagena RN) Pain Scale: 0 (Alina Cartagena RN) Pain Presence: None/Denies (Alina Cartagena RN) Pain Type: N/A (Alina Cartagena RN) Datetime: 10/09/2016 07:30 NBP Sys/Rossi/Mean (mmHg): 118 (QS system process) : 66 (QS system process) : 87 (QS system process) Pulse: 68 (QS system process) Datetime: 10/09/2016 07:01 NBP Sys/Rossi/Mean (mmHg): 152 (QS system process) : 65 (QS system process) : 94 (QS system process) Pulse: 93 (QS system process) Datetime: 10/09/2016 07:00 Stage of : Recovery (Rosalinda Dixon RN)
[2016-10-09] MEDS: IBUPROFEN SUSP 100 MG/5 ML ORAL SYRINGE PO PRN (20:20)
[2016-10-10] MEDS: IBUPROFEN SUSP 100 MG/5 ML ORAL SYRINGE PO PRN ×3 (04:26→22:10)
--- NOTE | 2016-10-10 06:01 | L&D Current Admission ---
Current Admit Datetime Report Generated by CPN: 10/10/2016 06:00 ADMISSION INFORMATION Current Admit Date/Time: 10/08/2016 23:30 (10/08/2016 23:44:Rosalinda Dixon RN) Reason for Admission: Onset of Labor (10/08/2016 23:44:Rosalinda Dixon RN) Chief Complaint: Contractions (10/08/2016 23:45:Rosalinda Dixon RN) EGA per Dates: 37.5 (10/08/2016 23:44:QS system process) Method of Arrival: Ambulatory (10/08/2016 23:44:Rosalinda Dixon RN) Reason for Induction: Not Applicable (10/08/2016 23:44:Rosalinda Dixon RN) Records Available: Yes (10/08/2016 23:44:Rosalinda Dixon RN) General Admission Information: Reviewed; Updated; Confirmed (10/08/2016 23:44:Rosalinda Dixon RN) General Admission Reviewed By: NANDA Sheth (10/08/2016 23:44:Rosalinda Dixon RN) BELONGINGS/ADVANCED DIRECTIVES Valuables/Personal Effects: Purse/Wallet; Cell Phone; Jewelry (10/08/2016 23:44:Rosalinda Dixon RN) Disposition of Belongings: Kept with Patient (10/08/2016 23:44:Rosalinda Dixon RN) Advance Direct for Healthcare: No, and Wants No Information (10/08/2016 23:44:Rosalinda Dixon RN) Durable Power of Design Manager: No (10/08/2016 23:44:Rosalinda Dixon RN) Living Will: No (10/08/2016 23:44:Rosalinda Dixon RN) Organ Donor: No (10/08/2016 23:44:Rosalinda Dixon RN) Pt Rights Information Given: Yes (10/08/2016 23:44:Rosalinda Dixon RN) Pt Understands Pt Rights: Yes (10/08/2016 23:44:Rosalinda Dixon RN) LEARNING ASSESSMENT Knowledge Level: Understands L_D Process; Understands Care Activities; Had Pre-Hospital Education; Understands Diagnosis (10/08/2016 23:44:Rosalinda Dxion RN) Barriers to Learning: None (10/08/2016 23:44:Rosalinda Dixon RN) Learning Readiness: Motivated (10/08/2016 23:44:Rosalinda Dixon RN) Learns Best By: Reading; Videos (10/08/2016 23:44:Rosalinda Dixon RN) Learning Needs: Labor and Delivery Process; Pain Management; Symptoms to Report; Treatment Plan (10/08/2016 23:44:Rosalinda Dixon RN) DOMESTIC VIOLANCE SCREENING Dom Viol Threatened/Hurt: No (10/08/2016 23:44:Rosalinda Dixon RN) Hx of Abuse/Neglect past 2yrs: No (10/08/2016 23:44:Rosalinda Dixon RN) Feel Unsafe Going Home: No (10/08/2016 23:44:Rosalinda Dixon RN) Addt'l Observ Indicating Abuse: No (10/08/2016 23:44:Rosalinda Dixon RN) Reason Unable to Complete Screen: N/A, Screen Completed (10/08/2016 23:44:Rosalinda Dixon RN) Considered Personal Harm/Suicide: No (10/08/2016 23:44:Rosalinda Dixon RN) NUTRITIONAL/FUNCTIONAL SCREENING Problem with Appetite >5 Days: No (10/08/2016 23:44:Rosalinda Dixon RN) Chew/Swallow Difficulties: No (10/08/2016 23:44:Rosalinda Dixon RN) Inappropriate Wt Gain/Loss: No (10/08/2016 23:44:Rosalinda Dixon RN) Presence Skin Breakdown/Ulcer: No (10/08/2016 23:44:Rosalinda Dixon RN) Special Diet: No (10/08/2016 23:44:Rosalinda Dixon RN) Pt Requests Amusement Centre Manager Visit: No (10/08/2016 23:44:Rosalinda Dixon RN) Hx of Any of the Following?: N/A (10/08/2016 23:44:Rosalinda Dixon RN) New Diagnosis of: N/A (10/08/2016 23:44:Rosalinda Dixon RN) Requires Assist w/Ambulation: No (10/08/2016 23:44:Rosalinda Dixon RN) Uses Assist Device to Ambulate: No (10/08/2016 23:44:Rosalinda Dixon RN) Pt Requires Help w/ADL's: No (10/08/2016 23:44:Rosalinda Dixon RN)
--- NOTE | 2016-10-10 06:01 | L&D General Admission ---
General Admit Datetime Report Generated by CPN: 10/10/2016 06:00 INFORMATION Patient Age: 21 (10/08/2016 19:52:QS system process) EDC: 10/25/2016 00:00 (10/08/2016 19:54:Natividad Devine RN) : 2 (10/08/2016 19:54:Sandy Solitario RN) Para: 1 (10/08/2016 19:54:Sandy Solitario RN) Term: 1 (10/08/2016 19:54:Sandy Solitario RN) : 0 (10/08/2016 19:54:Sandy Solitario RN) Spontaneous Abortions: 0 (10/08/2016 19:54:Sandy Solitario RN) Induced Abortions: 0 (10/08/2016 19:54:Sandy Solitario RN) Livin (10/08/2016 19:54:Sandy Solitario RN) Cesareans: 0 (10/08/2016 19:54:Sandy Solitario RN) VBACs: 0 (10/08/2016 19:54:Sandy Solitario RN) Ectopic: 0 (10/08/2016 19:54:Sandy Solitario RN) Multiple Births: 0 (10/08/2016 19:54:Sandy Solitario RN) Baby, Number in Womb: 1 (10/08/2016 19:54:Sandy Solitario RN) CARE [facility] (10/08/2016 19:54:June Flynn RN) Adequate Care: Yes (10/08/2016 19:54:June Flynn RN) Height (in): 66 (10/09/2016 09:29:QS system process) ALLERGIES Medication Allergy: Yes (10/08/2016 19:54:June Flynn RN) Medication Allergies: codeine/SV (10/08/2016) (10/08/2016 20:04:QS system process) Latex Allergy: No Latex Allergies (10/08/2016 19:54:June Flynn RN) Food Allergies: none (10/08/2016 19:54:June Flynn RN) Environmental Allergies: none (10/08/2016 19:54:June Flynn, RN) COMMUNICATION Primary Language: Peruvian (10/08/2016 19:54:June Flynn RN) Medical Tx Preferred Language: Peruvian (10/08/2016 19:54:June Flynn, RN) DEMOGRAPHICS Address: [address] [place] [id number] (10/08/2016 19:52:QS system process) Zipcode: [address] (10/08/2016 19:52:QS system process) Home (10/08/2016 19:52:QS system process) N: [phone] (10/08/2016 19:52:QS system process) Next of Kin Name: MANJINDER OSORIO (10/08/2016 19:52:QS system process) Next of Kin (10/08/2016 19:52:QS system process) Next of Kin Relationship: SPO (10/08/2016 19:52:QS system process) Date of : 1995 (10/08/2016 19:52:QS system process) Marital Status: (10/08/2016 19:52:QS system process) Sex: Female (10/08/2016 19:52:QS system process) Race: (10/08/2016 19:52:QS system process) Ethnicity: Non- or (10/08/2016 19:52:QS system process) Church: [employer] (10/08/2016 19:52:QS system process) DRUG AND ALCOHOL USE Alcohol: No (10/08/2016 19:54:June Flynn RN) Cigarettes: Never Smoker. 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: [facility] (10/08/2016 19:54:June Flynn RN) Feeding Preference: Breast (10/08/2016 19:54:June Flynn RN) Benefit of Breast Feed Discussed: Yes (10/08/2016 19:54:June Flynn RN) Circumcision: N/A (10/08/2016 19:54:June Flynn RN) Classes Attended: No (10/08/2016 19:54:June Flynn RN) Tubal Ligation: No (10/08/2016 19:54:June Flynn RN) Tubal Authorization Signed: N/A (10/08/2016 19:54:June Flynn RN) Consent: N/A (10/08/2016 19:54:June Flynn RN) Consent Signed: N/A (10/08/2016 19:54:June Flynn RN) Pain Management Plans: Epidural (10/08/2016 19:54:June Flynn RN) Plans for Labor and Delivery: None (10/08/2016 19:54:June Flynn RN) Support Person: Manjinder (10/08/2016 19:54:June Flynn RN) Support Person Relationship: (10/08/2016 19:54:June Flynn RN) Cultural/Spritual Practice: No (10/08/2016 19:54:June Flynn RN) Spir/Cult Dietary Needs: No (10/08/2016 19:54:June Flynn RN) LIVING SITUATION/DISCHARGE PLAN Living Arrangements: House (10/08/2016 19:54:June Flynn RN) Adequate Access to:: Electric; Heat; Refrigeration; Plumbing/Running water; Phone; Transportation (10/08/2016 19:54:June Flynn RN) WIC Program: Yes (10/08/2016 19:54:June Flynn RN) Discharge Audio Visual Aids Director Person: Manjinder (10/08/2016 19:54:June Flynn RN) Person to Help after Discharge: Manjinder (10/08/2016 19:54:June Flynn RN) Currently Using Commun Resources: No (10/08/2016 19:54:June Flynn RN) Outside Agency/Sugar Laboratory Assistant: No (10/08/2016 19:54:June Flynn RN) Car Seat for Discharge: Yes (10/08/2016 19:54:June Flynn RN) Adoption Requested: No (10/08/2016 19:54:June Flynn RN) Pt Contact w/ Post : N/A (10/08/2016 19:54:June Flynn RN) LABS Blood Type: B Positive (10/08/2016 19:54:Sandy Solitario RN) Antibody Screen: negative (10/08/2016 19:54:Sandy Solitario RN) Hemoglobin: 7.3 L (Annotations: VERBAL RESULT GIVEN TO John RUBY RN AT 0936 10/09/16 BY MOLLY ROCA. VERIFIED BY READ BACK.) (10/09/2016 09:12:QS system process) Hematocrit: 23.1 L (10/09/2016 09:12:QS system process) MCV: 73 L (10/09/2016 09:12:QS system process) Group Beta Strep: negative (10/08/2016 19:54:Sandy Solitario RN) Gonorrhea: Negative (10/08/2016 19:54:Sandy Solitario RN) Chlamydia: Negative (10/08/2016 19:54:Sandy Solitario RN) RPR/VDRL: Nonreactive (10/08/2016 19:54:Sandy Solitario RN) HIV Results: non-reactive (10/08/2016 19:54:Sandy Solitario RN) Hepatitis B: Negative (10/08/2016 19:54:Sandy Solitario RN) Rubella: Immune (10/08/2016 19:54:Sandy Solitario RN) OB/PREVIOUS HISTORY Previous Procedures: Ultrasound; NST (10/08/2016 19:54:June Flynn RN) Current Procedures: Ultrasound; NST (10/08/2016 19:54:June Flynn RN) History of Previous : No (10/08/2016 19:54:June Flynn RN) History of Gestational Diabetes: No (10/08/2016 19:54:June Flynn RN) History of PIH: No (10/08/2016 19:54:June Flynn RN) History of Incompetent Cervix: No (10/08/2016 19:54:June Flynn RN) History of Placenta Previa/Abrup: No (10/08/2016 19:54:June Flynn RN) History of Macrosomia: No (10/08/2016 19:54:June Flynn RN) History of IUGR: No (10/08/2016 19:54:June Flynn RN) History of Hemorrhage: No (10/08/2016 19:54:June Flynn RN) History of Loss/Stillborn: No (10/08/2016 19:54:June Flynn RN) History of : No (10/08/2016 19:54:June Flynn RN) History of D (Rh) Sensitization: No (10/08/2016 19:54:June Flynn RN) History Recurrent Loss/Stillborn: No (10/08/2016 19:54:June Flynn RN) History Depression/PP Depression: No (10/08/2016 19:54:June Flynn RN) History of Uterine Anomaly/LUZ: No (10/08/2016 19:54:June Flynn RN) History of Infertility: No (10/08/2016 19:54:June Flynn RN) History of ART Treatment: No (10/08/2016 19:54:June Flynn RN) History of LUZ: No (10/08/2016 19:54:June Flynn RN) Comments Obstetrical History: G1: Male 7 pounds 4 ounces 2014 G2: Current (10/08/2016 19:54:June Flynn RN) MEDICAL HISTORY Med Hx Diabetes: No (10/08/2016 19:54:June Flynn RN) Med Hx Hypertension: No (10/08/2016 19:54:June Flynn RN) Med Hx Heart Disease: No (10/08/2016 19:54:June Flynn RN) Med Hx Autoimmune Disorder: No (10/08/2016 19:54:June Flynn RN) Med Hx Kidney Disease/UTI: No (10/08/2016 19:54:June Flynn RN) Med Hx Neurologic/Epilepsy: No (10/08/2016 19:54:June Flynn RN) Med Hx Psychiatric Disorders: No (10/08/2016 19:54:Jnue Flynn RN) Med Hx Hepatitis/Liver Disease: No (10/08/2016 19:54:June Flynn RN) Med Hx Varicosities/Phlebitis: No (10/08/2016 19:54:June Flynn RN) Med Hx Thyroid Dysfunction: No (10/08/2016 19:54:June Flynn RN) Med Hx Trauma/Violence: No (10/08/2016 19:54:June Flynn RN) Med Hx Blood Transfusion: No (10/08/2016 19:54:June Flynn RN) Med Hx Pulmonary (Asthma,TB): No (10/08/2016 19:54:June Flynn RN) Med Hx Breast: No (10/08/2016 19:54:June Flynn RN) Med Hx CHURCH ADMINISTRATOR Surgery: No (10/08/2016 19:54:June Flynn RN) Med Hx Hospitalization/Surgery: Yes (10/08/2016 19:54:Sandy Solitario RN) Med Hx Anesthetic Complications: No (10/08/2016 19:54:June Flynn RN) Med Hx Abnormal Pap Smear: No (10/08/2016 19:54:June Flynn RN) Other Medical Diseases: No (10/08/2016 19:54:June Flynn RN) Med Hx Significant Family Hx: No (10/08/2016 19:54:June Flynn RN) Details of Med/Surg Hx: knee surgery x 3; - 2014 (10/08/2016 19:54:Sandy Solitario RN) INFECTIOUS HISTORY Inf Hx Gonorrhea: No (10/08/2016 19:54:June Flynn RN) Inf Hx Chlamydia: No (10/08/2016 19:54:June Flynn RN) Inf Hx Syphilis: No (10/08/2016 19:54:June Flynn RN) Inf Hx HIV/AIDS: No (10/08/2016 19:54:June Flynn RN) Inf Hx Human Papilloma Virus: No (10/08/2016 19:54:June Flynn RN) Inf Hx Pt/Partner Genital Herpes: No (10/08/2016 19:54:June Flynn RN) Inf Hx Tuberculosis/Exposure: No (10/08/2016 19:54:June Flynn RN) Inf Hx Hepatitis B,C: No (10/08/2016 19:54:June Flynn RN) Inf Hx Rash or Viral Illness: No (10/08/2016 19:54:June Flynn RN) GENETIC HISTORY Gen Hx Age >=35 at JOAQUIN: No (10/08/2016 19:54:June Flynn RN) Gen Hx Thalassemia: No (10/08/2016 19:54:June Flynn RN) Gen Hx Congenital Heart Defect: No (10/08/2016 19:54:June Flynn RN) Gen Hx Neural Tube Defect: No (10/08/2016 19:54:June Flynn RN) Gen Hx Down's Syndrome: No (10/08/2016 19:54:June Flynn RN) Gen Hx Jerome-Sachs: No (10/08/2016 19:54:June Flynn RN) Gen Hx Manuel: No (10/08/2016 19:54:June Flynn RN) Gen Hx Familial Dysautonomia: No (10/08/2016 19:54:June Flynn RN) Gen Hx Sickle Cell Disease/Trait: No (10/08/2016 19:54:June Flynn RN) Gen Hx Hemophilia/Blood Disorder: No (10/08/2016 19:54:June Flynn RN) Gen Hx Muscular Dystrophy: No (10/08/2016 19:54:June Flynn RN) Gen Hx Cystic Fibrosis: No (10/08/2016 19:54:June Flynn RN) Gen Hx Huntingtons Chorea: No (10/08/2016 19:54:June Flynn RN) Gen Hx Mental Retardation/Autism: No (10/08/2016 19:54:June Flynn RN) Gen Hx Tested for Fragile X: No (10/08/2016 19:54:June Flynn RN) Gen Hx Other Inher/Chromosomal: No (10/08/2016 19:54:June Flynn RN) Gen Hx Maternal Metabolic DO: No (10/08/2016 19:54:June Flynn RN) Gen Hx Pt Father or FOB Defect: No (10/08/2016 19:54:June Flynn RN) Gen Hx Other Genetic History: No (10/08/2016 19:54:June Flynn RN) Gen Hx Drugs/Meds since LMP: No (10/08/2016 19:54:June Flynn RN)
--- NOTE | 2016-10-10 06:16 | L&D Care Plan ---
LD CARE PLANS Datetime Report Generated by CPN: 10/10/2016 06:15 Datetime: 10/08/2016 23:36 Pain State: Risk For (Sandy Solitario RN) Related To: Labor and Delivery Process; Complication(s) of (Sandy Solitario RN) Goal(s): Patients Pain will be Assessed and Managed; Patient will Verbalize Adequate Relief of Pain or the Ability to [place] with Current Pain (Sandy Solitario RN) Interventions: Assess Pain Severity on Scale of 0 (None) to 5 (Severe); Assess Type, Location and Intensity of Pain Each Time Client Reports Discomfort and Notify Provider if Unusal Pain Develops; Encourage Proper Breathing and Relaxation Techniques; Offer Alternatives Such as Repositioning, Calm Environment, Massages, Diversional Activities, Ice Pack, Splinting, and Ambulation; Administer Analgesics as Ordered; Assist with Epidural Placement as Appropriate; Evaluate Therapeutic Effectiveness of Medication and Treatments (Sandy Solitario RN) Outcome: Patient will Report Absence or Relief of Pain Consistent with Established Pain Goal (Sandy Solitario RN) Outcome: Patient will have a Decrease in Signs and Symptoms of Discomfort (Sandy Solitario RN) Outcome: Pain will be Controlled During Procedures (Sandy Solitario RN) Anxiety State: Risk For (Sandy Solitario RN) Related To: Labor and Delivery Process; Perceived or Actual Threat to ; Fear of Unknown; Situational Crisis (Sandy Solitario RN) Goal(s): Patient will have Decreased Anxiety and be able to Function at Acceptable Levels (Sandy Solitario RN) Interventions: Assess Verbal and Nonverbal Behavioral Indicators of Anxiety; Assist Patient to Identify and Verbalize Symptoms of Anxiety; Identify and Demonstrate Techniques to Control Anxiety; Assist Patient with Coping Mechanisms to Manage Anxiety; Provide Theraputic Touch for the Patient; Explain to Patient, Using a Calm Reassuring Approach and Nonmedical Terms, All Activities, Procedures, and Concerns; Instruct Patient and Family about Post Discharge Care, Limitations, Symptoms to Report and Resources Available (Sandy Solitario RN) Outcome: Patient will Identify, Verbalize and Demonstrate Techniques to Control Anxiety (Sandy Solitario RN) Outcome: Patient's Posture, Facial Expressions, Gestures and Activity Level will Reflect Decreased Anxiety (Sandy Solitario RN) Outcome: Patient will Verbalize a Sense of Control and/or Acceptance of the Situation (Sandy Solitario RN) Outcome: Patient will Identify and Utilize Support Person (Sandy Solitario RN) Knowledge Deficit State: Risk For (Sandy Solitario RN) Related To: Impending Alterations in Family Dynamics (Sandy Solitario RN) Goal(s): Patient will Accurately Verbalize Understanding of Plan of Care and Treatment; Patient and Family will Accurately Verbalize Understanding of the Disease Process (Sandy Solitario RN) Interventions: Assess Motivation and Willingness of Patient/Family to Learn; Assess Preferred Learning Mode: One to One Instruction, Reading, Videos, Group Discussion or Demonstration; Assess Barriers to Learning: Pain, Emotional State, Language Barrier, Cognitive Impairment, Visual or Hearing Deficits; Assess Patient and Family Knowledge of Disease Process, Medications and Treatment; Discuss Therapy and/or Treatment Options, Describe Rationale Behind Management, Therapy and Treatment Recommendations; Instruct Patient and Family on Signs and Symptoms to Report; Instruct Patient and Family on Medication Effects and Side Effects; Provide Appropriate and Timely Education Using Multiple Techniques; Provide Patient and Family with Support Group Information and Resources; Give Clear and Thorough Explanations and Demonstrations (Sandy Solitario RN) Outcome: Patient and Family will Verbalize Understanding of Condition, Treatment and Signs and Symptoms to Report (Sandy Solitario RN) Outcome: Patient will Identify Perceived Learning Needs and Express Motivation to Learn (Sandy Solitario RN) Outcome: Patient will Verbalize Understanding of Desired Content, and/or Performs Desired Skill Prior to Discharge (Sandy Solitario RN) Infection State: Risk For (Sandy Solitario RN) Related To: Prolonged Labor or Induction (Sandy Solitario RN) Goal(s): The Patient will be Free of Infection, Vital Signs Stable and Lab Work within Normal Parameters (Sandy Solitario RN) Interventions: Instruct and Reinforce Proper Handwashing, Hygiene, and Care Techniques to Patient and Family; Monitor Vital Signs; Monitor Patient for the Following Signs of Infection: Fever, Abdominal Tenderness, Unusual Discharge; Monitor Aminiotic Fluid, Urine and Lochia for Color and Odor; Observe Wounds, Incisions and Invasive Line Sites for Redness, Drainage and Edema; Assess IV Sites per Hospital Policy; Monitor Lab and Test Results and Notify Provider of Abnormal Findings; Assess Nutritional Status and Promote Good Nutrition (Sandy Solitario RN) Outcome: Patient will Remain Free of Infection (Sandy Solitario RN) Outcome: Infection will be Recognized Early to Allow for Prompt Treatment (Sandy Solitario RN) Outcome: Patient will have Vital Signs Within Expected Range (Sandy Solitario RN) Fluid Volume State: Risk For (Sandy Solitario RN) Related To: Prolonged Labor or Induction; Hemorrhage (Sandy Solitario RN) Goal(s): Patient will Achieve and Maintain a Balanced Fluid Volume Status; Hemodynamically Stable (Sandy Solitario RN) Interventions: Monitor Vital Signs; Auscultate Breath Sounds; Monitor Patient for Skin Turgor, Mucous Membranes, Dry Skin, Weakness, Headaches and Confusion; Provide Oral Fluids as Ordered; Initiate and Maintain Intravenous Fluids as Ordered; Monitor Intake and Output as Indicated Per Patient Status; Accurately Measure Blood Loss; Monitor Lab and Test Results as Obtained and Notify Provider of Abnormal Findings; Monitor Patient's Weight (Sandy Solitario RN) Outcome: Patient will have Clear Lung Sounds (Sandy Solitario RN) Outcome: Patient will have Vital Signs within Expected Range (Sandy Solitario RN) Outcome: Urine Output will be within Expected Range (Sandy Solitario RN) Outcome: Patient will have Minimal Generalized or Upper Extremity Edema (Sandy Solitario RN) Injury State: Risk For (Sandy Solitario RN) Related To: Labor and Delivery Process; Anesthesia (Sandy Solitario RN) Goal(s): Patient will Remain Free from Injury (Sandy Solitario RN) Interventions: Monitoring as per Hospital Protocol; Assess Neurological Status; Perform Risk Assessment of Patients with Induction and ; Perform Fall Risk Assessment and Prevention per Hospital Protocol; Perform DVT Risk Assessment and Prophylaxis per Hospital Protocol; Ensure that Oxygen, Suction, and Resuscitation Medications and Equipment are Readily Available; Confirm Patient ID Prior to Procedure(s) and Medication Administration per Hospital Policy (Sandy Solitario RN) Outcome: Successful Fall Risk Prevention (Sandy Solitario RN) Outcome: Patient will Deliver Infant without Adverse Sequela (Sandy Solitario RN) Outcome: Patient's Neurological Status will Remain Stable (Sandy Solitario RN) Impaired Skin Integrity State: Risk For (Sandy Solitario RN) Related To: Vaginal Delivery (Sandy Solitario RN) Goal(s): Patient will Maintain Optimal Skin Integrity, Free of Breakdown, Injury or Infection (Sandy Solitario RN) Interventions: Complete Screening for Pressure Ulcer Risk and Initiate Protocol per Hospital Policy; Monitor Site of Skin Impairment for Color Changes, Redness, Swelling, Warmth, Pain or Other Signs of Infection; Encourage and Assist with Position Changes; Monitor Patient's Mobility Status; Provide Adequate Nutrition and Fluids; Teach Patient Appropriate Hygienic Care; Teach Patient/Family Skin Care Management (Sandy Solitario RN) Outcome: Patient will not have Evidence of Injury Such as Skin Breakdown, Scrapes, Cuts, or Bruising (Sandy Solitario, RN) Outcome: Patient will Report Any Altered Sensation or Pain at Site of Skin Impairment (Sandy Solitario, RN) Outcome: Patients Incisions and Wounds will be without Signs or Symptoms of Infection (Sandy Solitario, RN) Outcome: Patient will Demonstrate Understanding of Plan to Heal Skin and Prevent Reinjury and Verbalize Risk Factors (Sandy Solitario RN)
[2016-10-10 07:50] LABS: HEMATOCRIT 25.3 % (36.0-47.0); HEMOGLOBIN 8.1 g/dL (12.0-15.5); MEAN CORPUSCULAR HEMOGLOBIN 23.4 pg (27.0-33.4); MEAN CORPUSCULAR HGB CONC 31.9 g/dL (32.0-36.0); MEAN CORPUSCULAR VOLUME 73 fl (80-97); RED BLOOD COUNT 3.45 10^6/uL (3.72-5.28); RED CELL DISTRIBUTION WIDTH 15.6 % (11.5-14.0); WHITE BLOOD COUNT 9.4 10^3/uL (4.0-10.5)
[2016-10-10] MEDS: FERROUS SULFATE LIQUID 300 MG/5 ML UDC PO SCH ×2 (10:00→17:30)
[2016-10-10] MEDS: DOCUSATE SODIUM 100 MG CAPSULE PO SCH ×2 (10:01→17:30)
[2016-10-10] MEDS: FAMOTIDINE 20 MG TABLET PO SCH ×2 (10:01→21:46)
[2016-10-10] MEDS: PRENATAL VITAMIN W-O CA NO5/FE FUMARATE/FA CAPSULE PO SCH (10:01)
[2016-10-10] MEDS: SENNOSIDES/DOCUSATE 8.6-50 MG 1 EACH TABLET PO SCH (10:01)
--- NOTE | 2016-10-10 12:24 | PDOC PROGRESS REPORT ---
Subjective-OB Subjective: Post Delivery Day: 1 21 year old. Denies any needs at this time, states lochia is stable, pain is well controlled, voiding without difficulty Physical Exam (OB) Vital Signs: Temp Pulse Resp BP Pulse Ox 97.6 F 69 18 124/71 100 10/10/16 07:00 10/10/16 07:00 10/10/16 07:00 10/10/16 07:00 10/10/16 07:00 Intake & Output 10/09/16 10/10/16 10/11/16 06:59 06:59 06:59 Weight 66.05 kg - Lochia Lochia Amount: Scant < 10 ml Lochia Color: Rubra/Red - Abdomen Description: Soft, Round Hernia Present: No Fundal Description: Firm, Midline Fundal Height: u/u - u/2 Objective-Diagnostic Laboratory: 10/10/16 07:18 10/10/16 07:18 WBC 9.4 RBC 3.45 L Hgb 8.1 L Hct 25.3 L MCV 73 L MCH 23.4 L MCHC 31.9 L RDW 15.6 H Plt Count 160 Assessment and Plan(PN) - Assessment and Plan (1) Anemia Qualifiers: Anemia type: iron deficiency Is this a current diagnosis for this admission?: YesPlan: ferrous sulfate increase dietary iron (2) Kiwi vacuum extraction Is this a current diagnosis for this admission?: YesPlan: routine pp care - Time Spent with Patient Time with patient: Less than 15 minutes Critical Time spent with patient: Less than 15 minutes Smoking Education Provided: Over 3 minutes Medications reviewed and adjusted accordingly: Yes - Disposition Anticipated Discharge: Home Within: within 24 hours
[2016-10-11] MEDS ORDERED: IBUPROFEN SUSP 20 MG/1 ML 118 ML ONE (05:30)
[2016-10-11 08:41] VITALS: BP 124/73
[2016-10-11] MEDS: FERROUS SULFATE LIQUID 300 MG/5 ML UDC PO SCH (09:58)
[2016-10-11] MEDS: SENNOSIDES/DOCUSATE 8.6-50 MG 1 EACH TABLET PO SCH (10:00)
[2016-10-11] MEDS: PRENATAL VITAMIN W-O CA NO5/FE FUMARATE/FA CAPSULE PO SCH (10:00)
[2016-10-11] MEDS: DOCUSATE SODIUM 100 MG CAPSULE PO SCH (10:00)
[2016-10-11] MEDS: FAMOTIDINE 20 MG TABLET PO SCH (10:00)
--- NOTE | 2016-10-11 11:47 | PDOC DISCHARGE SUMMARY ---
Final Diagnosis Discharge Date: 10/11/16 - Final Diagnosis (1) Anemia Is this a current diagnosis for this admission?: Yes (2) Kiwi vacuum extraction Is this a current diagnosis for this admission?: Yes Discharge Data - Discharge Medication Home Medications: Cmb#95/Iron/FA/Dha [ + Dha Combo Pack] 1 each PO DAILY Docusate Sodium [Colace 100 mg Capsule] 100 mg PO BID #60 capsule 10/11/16 Ferrous Sulfate [Ferrous Sulfate Liquid 300 mg/5 ml Udcup] 300 mg PO BID #60 udc 10/11/16 Ibuprofen [Motrin Susp 100 mg/5 ml Oral Syringe] 800 mg PO Q6HP PRN #60 syringe 10/11/16 Gestational Age: 37.5 Reason(s) for Admission: Onset of Labor Procedures: NST Intrapartum Procedure(s): Vacuum Extraction - Data Baby 1 Female at 1 minute: 9 at 5 minutes: 9 Weight: 3130 kg Home with Mother: No Complications: No - Diagnosis Test Laboratory: Temp Pulse Resp BP Pulse Ox 97.8 F 91 20 124/73 100 10/11/16 09:16 10/11/16 09:16 10/11/16 09:16 10/11/16 09:16 10/11/16 09:16 10/08/16 10/09/16 10/09/16 20:52 00:20 09:12 RBC 3.31 L 3.17 L Hgb 7.8 L 7.3 L Hct 24.2 L 23.1 L Urine Opiates Screen NEGATIVE 10/10/16 07:18 RBC 3.45 L Hgb 8.1 L Hct 25.3 L Urine Opiates Screen - Discharge information/Instructions Discharge Activity: Activity As Tolerated, Balance Activity w/Rest, No Lifting Over 10 Pounds, No Lifting/Push/Pulling, Pelvic Rest, Slowly Increase Activity Discharge Diet: Regular Disposition: HOME, SELF-CARE Follow [facility] with: [facility] in: 4, Weeks
== END 2016-10-11 12:37 | disposition home or self-care (01) | DRG 775 ==
LOC: LC 19:52 → LR 23:33 → NUR 23:33 → UNDOADMIN 23:33 → 2S 10-09 09:29
PROVIDERS: ADMIT Obstetrics & Gynecology; ATTEND Obstetrics & Gynecology
PROC: 4A1HXCZ Monitoring of Products of Conception, Cardiac Rate, External Approach (ICD-10-PCS; 2016-10-08)
PROC: 10D07Z6 Extraction of Products of Conception, Vacuum, Via Natural or Artificial Opening (ICD-10-PCS; principal; 2016-10-09)
PROC: 10907ZC Drainage of Amniotic Fluid, Therapeutic from Products of Conception, Via Natural or Artificial Opening (ICD-10-PCS; 2016-10-09)
DX: O99.02 Anemia complicating childbirth (principal); D50.9 Iron deficiency anemia, unspecified; Z88.6 Allergy status to analgesic agent; Z3A.37 37 weeks gestation of pregnancy; Z37.0 Single live birth
CPT/HCPCS: 36415; 80307; 81005; 85025; 85027; 86592; 86850; 86900; 86901; J2590; J3490